=== PATIENT | female | born 1950 | race Caucasian/White ===

== ENCOUNTER 2016-09-29 13:46 | Emergency (ER) | payer MEDICAID ==
[~2016-09-29] VITALS: Ht 157.5 cm; Wt 50.0 kg
[2016-09-29] MEDS ORDERED: IBUPROFEN 600MG TABLET PO ONE (14:30)
[2016-09-29 14:34] VITALS: BP 135/72
== END 2016-09-29 14:50 | disposition home or self-care (01) ==
LOC: ER 14:06
DX: M54.2 Cervicalgia (principal); M25.562 Pain in left knee; M25.561 Pain in right knee
CPT/HCPCS: 99283